=== PATIENT | male | born 1980 | race Caucasian/White ===

== ENCOUNTER 2021-05-28 16:30 | Emergency (ER) | payer MEDICAID ==
[~2021-05-28] VITALS: Ht 167.6 cm; Wt 86.0 kg
[2021-05-28 16:37] VITALS: BP 130/96
[2021-05-28] MEDS ORDERED: LIDOCAINE HCL/PF 1% 10 MG/ML 5ML VIAL INFIL ONE (17:30)
[2021-05-28] MEDS ORDERED: LIDOCAINE HCL 1% 10 MG/ML 10ML VIAL INJ NR (17:32)
[2021-05-28] MEDS ORDERED: CEPH500C2 MT (19:15)
== END 2021-05-28 19:21 | disposition home or self-care (01) ==
LOC: ER 16:30
DX: L60.0 Ingrowing nail (principal)
CPT/HCPCS: 10060; 99283; J3490